=== PATIENT | female | born 1990 | race Caucasian/White ===

== ENCOUNTER 2022-08-14 22:50 | Emergency (ER) | payer OTHER ==
[2022-08-15 00:05] LABS: HEMOGLOBIN 13.7 gm/dl (12.3-15.3); RED BLOOD COUNT 4.57 M/UL (4.00-5.10); WHITE BLOOD COUNT 22.4 K/UL (4.5-11.0)
[2022-08-15 00:15] LABS: BUN/CREATININE RATIO 13 (0-10)
[2022-08-15] MEDS ORDERED: HYDROCODON-ACE1 EAC4 PO (05:13)
[2022-08-15] MEDS ORDERED: ZOFRAN ODT 4 MG4 MG SL (05:18)
[2022-08-15] MEDS ORDERED: AMOX TR-K CLV1 EAC4 PO (05:20)
== END 2022-08-15 05:35 | disposition home or self-care (01) ==
LOC: ER1 22:50
DX: N13.6 Pyonephrosis (principal); K80.20 Calculus of gallbladder without cholecystitis without obstruction; Z20.822 Contact with and (suspected) exposure to COVID-19; F17.200 Nicotine dependence, unspecified, uncomplicated; Z88.5 Allergy status to narcotic agent
CPT/HCPCS: 71046; 80053; 81001; 83605; 85025; 87040; 87086; 96361; 96374; 96375; 99284; J0696; J1885; J2405; U0002